=== PATIENT | female | born 1950 | race Caucasian/White ===

== ENCOUNTER 2018-09-19 06:47 | Day surgery (SDC) | END 2018-09-19 11:02 | disposition home or self-care (01) ==

== ENCOUNTER 2018-10-19 06:51 | Day surgery (SDC) | END 2018-10-19 11:30 | disposition home or self-care (01) ==

== ENCOUNTER 2019-09-13 11:06 | Emergency (ER) | payer OTHER ==
[~2019-09-13] VITALS: Ht 152.4 cm; Wt 60.0 kg
[~2019-09-13 11:06] MED LIST: ALEN70TA5 PO; LISI10TA2 PO; LORA10TA3 PO
[2019-09-13 11:15] VITALS: Ht 152.4 cm; Wt 60.0 kg
[2019-09-13] MEDS ORDERED: SOD CHLORIDE 0.9% 500 ML IV STA (11:58)
[2019-09-13] MEDS ORDERED: KETOROLAC 15 MG INJ IV STA (11:58)
[2019-09-13] MEDS ORDERED: OXYCODONE/ACETAMINOPHEN (5/325) TAB PO ONE (12:00)
[2019-09-13 14:18] VITALS: BP 138/75; PULSE 70; RESP 19
== END 2019-09-13 14:19 | disposition home or self-care (01) ==
LOC: E/R 11:06
DX: G89.18 Other acute postprocedural pain (principal); I10 Essential (primary) hypertension; R40.2142 Coma scale, eyes open, spontaneous, at arrival to emergency department; R40.2362 Coma scale, best motor response, obeys commands, at arrival to emergency department; R40.2252 Coma scale, best verbal response, oriented, at arrival to emergency department; Z96.652 Presence of left artificial knee joint
CPT/HCPCS: 36415; 80048; 85025; 85651; 86140; 93971; 96374; J1885; J7040; Z7502; Z7610